=== PATIENT | male | born 1950 | race Caucasian/White ===

== ENCOUNTER 2016-12-30 07:54 | Day surgery (SDC) | payer MEDICARE, BC ==
[2016-12-30] MEDS ORDERED: PROPOFOL 500 MG/50 ML EMU IV ONE (08:34)
[2016-12-30] MEDS ORDERED: ONDANSETRON HCL 4 MG/2 ML SOL ONE (08:34)
[2016-12-30] MEDS ORDERED: MIDAZOLAM 2 MG/2 ML SOL ONE (08:34)
[2016-12-30] MEDS ORDERED: FENTANYL CITRATE 50 MCG/ML SOL ONE (08:34)
[2016-12-30] MEDS ORDERED: LIDOCAINE HCL 1% MPF SOL ONE (08:35)
[2016-12-30] MEDS: LIDOCAINE HCL 1% MPF SOL ONE ×2 (09:34→09:40)
[2016-12-30 09:58] VITALS: TEMP 97.2
[2016-12-30 10:22] VITALS: PULSE 51
[2016-12-30 10:28] VITALS: BP 117/64; RESP 16; O2SAT 100
== END 2016-12-30 10:57 | disposition home or self-care (01) | DRG 74 ==
LOC: SURG 07:54
PROVIDERS: ATTEND Orthopaedic Surgery
DX: G56.02 Carpal tunnel syndrome, left upper limb (principal)
CPT/HCPCS: J2250; J2405; J3010; J2001; J2704

== ENCOUNTER 2017-03-17 11:52 | Outpatient (CLI) | payer MEDICARE, BC ==
[2016-12-30 10:28] VITALS: O2SAT 100
== END 2017-03-17 11:53 | disposition home or self-care (01) | DRG 554 ==
LOC: CONVCARE 11:52
PROVIDERS: ATTEND Orthopaedic Surgery
DX: M19.032 Primary osteoarthritis, left wrist (principal)
CPT/HCPCS: 73100